=== PATIENT | female | born 1985 | race Caucasian/White ===

== ENCOUNTER 2024-04-19 08:54 | Outpatient (CLI) | payer BC, SELFPAY ==
[2024-04-21 13:54] LABS: HPV Source Cervix; HPV, High Risk by TMA Not Detected
== END 2024-04-19 08:55 | disposition home or self-care (01) ==
PROVIDERS: PCP Family Medicine; Visit Provider Family Medicine
DX: Z12.4 Encounter for screening for malignant neoplasm of cervix (principal); Z11.51 Encounter for screening for human papillomavirus (HPV)
CPT/HCPCS: 87624; 87625; 88141; 88142

== ENCOUNTER 2024-07-16 14:18 | Emergency (ER) | payer BC, SELFPAY ==
--- OUTSIDE RECORDS SUMMARY | 2024-07-16 14:21 | XMS_ITS | Clinical Summary ---
Author Organization [facility] Address [address] [place] [id number] Care Team Providers Care Temperer Name Role Phone Gabriela Macedo APRN, C.N.P., D.N.P. Primary Ca re Provider Source Comments Patient records contain information from all sites at [facility]. For routine questions regarding patient records, call [phone] during business hours, M-F 8:00 AM - 5:00 PM Central Time. Record requests for emergency care only can be directed to [phone] at any time.[facility] Allergies No known active allergies Medications * This document contains information received from the source organization and may not represent a complete record from that organization. vitamin-iron fumarate-FA 28 mg iron- 800 mcg per tablet Take 1 tablet by mouth daily. Doesn't take daily Active acetaminophen (TYLENOL) 500 mg tablet Take 500 mg by mouth every 6 (six) hours as needed for pain. Active ibuprofen (ADVIL,MOTRIN) 200 mg tablet Take 200 mg by mouth every 6 (six) hours as needed for pain. Active buPROPion XL (WELLBUTRIN XL) 300 mg 24 hr tablet Take 1 tablet (300 mg total) by mouth every morning. 90 tablet 3 4 Active esomeprazole (NexIUM) [address] capsule TAKE 1 CAPSULE(20 MG) BY MOUTH EVERY MORNING BEFORE BREAKFAST 90 capsule 3 4 Active Active Problems Problem Noted Date Diagnosed Date Gastroesophageal Reflux Disease 02/28/2022 Overview (02/28/2022): Continue Nexium 40 mg daily. Assessment & Plan (02/28/2022 3:38 PM CDT): Decreasing Nexium to 20 mg daily, if symptoms become unmanaged again, we will increase back to 40 mg daily. Depression Major One Episode Mild 05/06/2021 Overview (07/21/2023): PHQ9 Score PHQ-9 Total Score (max 27) 02/15/2021 2:21 PM 6 02/28/2022 3:20 PM 6 06/29/2023 11:23 AM 6 GAD7 Score BRIDGER-7 Total Score (max 21) 02/15/2021 2:21 PM 5 02/28/2022 3:22 PM 2 06/29/2023 11:24 AM 2 Continue Wellbutrin XL 300 mg daily. Encounters Date Type Department Care Team Description 04/22/2024 Refill Department of Family Medicine, [facility], in [place], [place] [address] [place] [address] Rama Sol P.A.-C., P.A., M.S. Med Refill from Last 3 Months Immunizations Immunization Administration Dates Next Due H1N1 All Forms 04/16/2009 H1N1 Nasal 04/16/2009 Influenza, Injectable, Mdck, Preservative Free, Quadrivalent 02/13/2020 MMR 08/09/1997,04/19/1997 SARS-COV-2 (COVID-19) - MODE RNA (12 YEARS AND OLDER) Fall Seasonal 06/30/2023 Td (Adult), adsorbed 08/09/1997 Tdap 02/15/2021 influenza vaccine quad (FLUZ ONE/FLUARIX) (6 months and older)(PF) 06/30/2023 Family History Medical History Relation Name Comments Prediabetes Father Diabetes mellitus type II Mother Relation Name Status Comments Father Mother Social History Tobacco Use Types Packs/Day Years Used Date Smoking Tobacco: Never Smokeless Tobacco: Never Tobacco Cessation:Counseling Given: Not Answered Alcohol Use Standard Drinks/Week Comments Not Currently 2 (1 standard drink = 0.6 oz pur e alcohol) rare- twice a month [facility] Utilities Answer Date Recorded In the past 12 months has [employer], oil, or water [employer] threatened to shut off services in your home? No 06/29/2023 Humiliation, Afraid, Rape, and Kick questionnair e Answer Date Recorded Within the last year, have y ou been afraid of your partner or ex-partner? No 04/25/2020 Within the last year, have y ou been humiliated or emotionally abused in other ways by your partner or ex-partner? No Within the last year, have y ou been kicked, hit, slapped, or otherwise physically hurt by your partner or ex-partner? No 04/25/2020 Within the last year, have y ou been raped or forced to have any kind of sexual activity by your partner or ex-partner? No 04/25/2020 Social Connection and Isolat ion Panel [NHANES] Answer Date Recorded In a typical week, how many times do you talk on the phone with family, friends, or neighbors? More than three times a week 04/25/2020 How often do you get togethe r with friends or relatives? More than three times a week 04/25/2020 How often do you attend chur ch or latter-day services? Never 04/25/2020 Do you belong to any clubs o r organizations such as muslim groups, unions, fraternal or athletic groups, or school groups? No 04/25/2020 How often do you attend meet ings of the clubs or organizations you belong to? Never 04/25/2020 Are you , , di vorced, , never , or living with a partner? 04/25/2020 AUDIT-C Answer Date Recorded Q1: How often do you have a drink containing alc ohol? Monthly or less 04/25/2020 Q2: How many drinks containi ng alcohol do you have on a typical day when you are drinking? 1 or 2 04/25/2020 Q3: How often do you have si x or more drinks on one occasion? Less than monthly 04/25/2020 Overall Financial Resource Strain (CARDIA) Answe r Date Recorded How hard is it for you to pa y for the very basics like food, housing, medical care, and heating? Not hard at all 04/25/2020 PHQ-2 Answer Date Recorded PHQ-2 Score 2 01/25/2024 [facility] - Occupational Stress Questionnaire Answer Date Recorded Do you feel stress - tense, restless, nervous, or anxious, or unable to sleep at night because your mind is troubled all the time - these days? Only a little 04/25/2020 Exercise Vital Sign Answer Date Recorde d On average, how many days pe r week do you engage in moderate to strenuous exercise (like a brisk walk)? 1 day 06/29/2023 On average, how many minutes do you engage in exercise at this level? 30 min 06/29/2023 Hunger Vital Sign Answer Date Recorded Within the past 12 months, y ou worried that your food would run out before you got the money to buy more. Never true 06/29/19 Within the past 12 months, t he food you bought just didn't last and you didn't have money to get more. Never true 06/29/2023 PRAPARE - Transportation Answer Date Re corded In the past 12 months, has l ack of transportation kept you from medical appointments or from getting medications? No 06/05 In the past 12 months, has l ack of transportation kept you from meetings, work, or from getting things needed for daily living? No 06/29/2023 Depression Answer Date Recor ded PHQ-9 Total Score (max 27) 5 01/24 Nutrition Answer Date Recorded On average, how many serving s of fruits and vegetables do you eat per day (serving size is equal to 1 cup or approximately the size of a tennis ball)? 0-2 06/29/2023 Dental Answer Date Recorded Dental: Regular Dentist Yes 06/29/19 Employment Answer Date Recorded Employment status Employed and actively working without restrictions 06/29/2023 Housing Stability Answer Date Recorded What is your living situation today? [facility] to [facility] 06/29/2023 Education Answer Date Recorded What is the highest level of school you have completed or the highest degree you have received? Associate degree: occupational, technical, or vocational program 04/25/2020 Comments Unknown Sex and Gender Information Value Date Recorded Sex Assigned at Female 06/29/2023 11:24 AM MAIL ORDER CLERK Legal Sex Female 5:10 AM MAIL ORDER CLERK Gender Identity Female 04/25/2020 11:16 PM MAIL ORDER CLERK Sexual Orientation Straight 06/29/2023 11 :24 AM MAIL ORDER CLERK Last Filed Vital Signs Vital Sign Reading Time Taken Comments Blood Pressure 117/83 12/07/2023 10:30 AM CDT Pulse 73 12/07/2023 10:45 AM CDT Temperature 36.4 C (97.5 F) 12/07/2023 9:15 AM CDT Respiratory Rate 21 12/07/2023 10:45 AM CDT Oxygen Saturation 100% 12/07/2023 10:45 AM CDT Inhaled Oxygen Concentration - - Weight 67.8 kg (149 lb 7.6 oz) 12/07/2023 9:12 A M CDT Height 158 cm (5' 2.21) 08/10/2023 1:04 PM CDT Body Mass Index 27.16 08/10/2023 1:04 PM CDT Plan of Treatment Health Maintenance Due Date Last Done Comments HIV Screening 1985 Hepatitis C Screening 1985 Hepatitis B Vaccines (1 of 3 - 19+ 3-dose series) 2004 Cervical/Vaginal Cancer Screening 11/03/2023 11/02/2018, 11/02/2018 COVID-19 Vaccine ( season) 2024 06/30/2023, 02/02/2021, 12/13/2020 Influenza Vaccine (#1) 2024 , 02/13/2020 Depression Monitoring (PHQ-9 for quality tracking) 05/04/2024 Depression Monitoring (PHQ-9) 05/26/2024 01/25/2024 Lipid (Cholesterol) Screening 06/30/2028 06/30/2023, 11/19/2018, 11/02/2015 DTaP,Tdap,and Td Vaccines (3 - Td or Tdap) 02/15/2031 02/15/2021, 08/09/1997 Hepatitis B Screening Discontinued 06/30/2023 HPV Vaccines Aged Out No longer eligi ble based on patient's age to complete this topic IPV Vaccines Aged Out No longer eligi ble based on patient's age to complete this topic Pneumococcal vaccine (0-49 years) Aged Out No longer eligible b ased on patient's age to complete this topic Procedures Procedure Name Priority Date/Time Associated Diagnosis Comments LIPID PANEL, S Routine 06/30/2023 11:04 AM MAIL ORDER CLERK General Medical Examination Adult Snoring Depression Major One Episode Mild (HCC) HEPATITIS B SURFACE ANTIGEN Routine 06/30/2023 11:04 AM MAIL ORDER CLERK General Medical Examination Adult Snoring Need Vaccine Immunization Screening Cancer Colon Screening Examination Diabetes Mellitus Depression Major One Episode Mild (HCC) Encounter For Antibody Response Examination THINPREP W/HPV CO-TEST SCREEN Routine 11/02/2018 8:42 AM CDT Pap Smear Examination from Last 3 Months or Most Recently Relevant to Health Maintenance Results * (ABNORMAL) Lipid Panel (06/30/2023 11:04 AM MAIL ORDER CLERK) Triglycerides 264(H) mg/dL 06/30/2023 11:55 AM MAIL ORDER CLERK AUST Comment: ----REFERENCE VALUE---- Normal: <150 mg/dL Borderline High: 150-199 mg/dL High: 200-499 mg/dL Very High: > or =500 mg/dL Cholesterol, Total 201(H) mg/dL 2023 11:55 AM MAIL ORDER CLERK AUST Comment: ----REFERENCE VALUE---- Desirable: < 200 mg/dL Borderline High: 200 - 239 mg/dL High: > or = 240 mg/dL Cholesterol, LDL, Calculated 115 mg/dL 06/30/2023 11:55 AM MAIL ORDER CLERK AUST Comment: ----REFERENCE VALUE---- Desirable: <100 mg/dL Above Desirable: 100-129 mg/dL Borderline High: 130-159 mg/dL High: 160-189 mg/dL Very High: >=190 mg/dL ----ADDITIONAL INFORMATION---- LDL cholesterol calculated using the Hare/NIH equation. Cholesterol, HDL 40(L) >=50 mg/dL 06/30/2023 11:55 AM MAIL ORDER CLERK AUST Cholesterol, Non-HDL, Calculated 161(H) mg/dL 06/30/2023 11:55 AM MAIL ORDER CLERK AUST Comment: ----REFERENCE VALUE---- Desirable: <130 mg/dL Above Desirable: 130-159 mg/dL Borderline High: 160-189 mg/dL High: 190-219 mg/dL Very High: > or =220 mg/dL Fasting (8 HR or more) Unknown 06/30/2023 11:09 AM MAIL ORDER CLERK AUST Blood (Blood, Venous) 06/30/2023 11:04 AM MAIL ORDER CLERK 06/30/2023 11:09 AM MAIL ORDER CLERK Shakir Chu M.D., M.S. LAB BLOOD ADD-ON Final Result Performing Organization Address [facility]/ZIP Co de Phone Number [facility] [address] [place] [address], [facility] [place] [address] * Hepatitis B Surface Antigen (06/30/2023 11:04 AM MAIL ORDER CLERK) HBs Antigen, S Nonreactive Nonreactive 06/30/2023 12:30 PM MAIL ORDER CLERK AUST Blood (Blood, Venous) 06/30/2023 11:04 AM MAIL ORDER CLERK 06/30/2023 11:09 AM MAIL ORDER CLERK Shakir Chu M.D., M.S. LAB MICROBIOLOGY - BLOO D ORDERABLES Final Result Performing Organization Address [facility] Co de Phone Number [facility] [address] [place] [address], [facility] [place] [address] * ThinPrep w/HPV Co-Test Screen (11/02/2018 8:42 AM CDT) 11/05/2018 11:59 AM CDT Report electronically signed by ILA Pryor(ASCP) I verify that I have examined all relevant slides/materials for the specimen(s) and rendered or confirmed the diagnosis. 11/05/2018 11:59 AM CDT Gross Description Received specimen in a ThinPrep vial. 11/05/2018 11:59 AM CDT Pap Test Source Cervical/Endocervi zunilda 11/05/2018 11:59 AM CDT Interpretation Cervical/Endocervi zunilda (ThinPrep): Satisfactory for Evaluation Endocervical/trans formation zone components absent Negative for Intraepithelial Lesion or Malignancy High Risk HPV Testing results are NEGATIVE. HPV by [employer] Inspector-Medi ated Amplification (TMA) for E6/E7 viral messenger RNA (mRNA) is an in-vitro diagnostic test for the detection of 14 high-risk Human Papilloma (HPV) types (16, 18, 31, 33, 35, 39, 45, 51, 52, 56, 58, 59, 66, and 68) in cervical specimens. Additional testing performed at [facility], [place], operated by [facility], [address] [place] [id number]. 11/05/2018 11:59 AM CDT Varies (Cervix/Endocerv ix) 11/02/2018 8:42 AM CDT 11/02/2018 2:15 PM CDT us Ivania Fontaine APRN LAB PAP PATHDX ORDERABLES F inal Result [facility] [address] [place] [address], [facility] from Last 3 Months or Most Recently Relevant to Health Maintenance Insurance [address] [place] [address] [facility] Care Teams Temperer Relationship Specialty Start Date End Date Gabriela Macedo APRN, C.N.P., D.N.P. [address] [place] [phone] PCP - General Family Medicine 04/22/21
[2024-07-16 14:22] VITALS: BP 145/88; PULSE 74; RESP 18; TEMP 37.3; O2SAT 100; BMI 24.8
--- NOTE | 2024-07-16 14:35 | ED.GENADULT ---
HPI - General Adult General Chief complaint: Eye Problems Stated complaint: Blood in Right eye Time Seen by Provider: 07/16/24 14:27 History of Present Illness HPI narrative: Patient presents to the emergency department complaining of blood in her eye. Patient states she was in the car and felt like she may have something in her eye she and rubbed the bottom eye lid near where the sclera is red. Patient states she did not injure her eye in any other way. 38-year-old woman presenting to the emergency department with concern of an injury to her right eye. Is not affected. Was in the car and thought maybe she had something in her eye. Rubbed her eye and was noted by her partner that she had significant blood there. Arrives for evaluation. She does not take anticoagulant. Is not having much in the way of pain. Little uncomfortable in the upper outer eye; maybe a sense of fullness as I understand it. Otherwise later notes that her ear was also bothering her recently. Is not struggling with congestion at the moment. Related Data Home Medications ?Medication ?Instructions ?Recorded ?Confirmed bupropion HCl 300 mg 24 hr tablet, 300 mg PO DAILY 04/19/24 07/16/24 extended release Previous Rx's ?Medication ?Instructions ?Recorded esomeprazole magnesium 20 mg 20 mg PO DAILY #90 caps 04/19/24 capsule,delayed release Allergies Allergy/AdvReac Type Severity Reaction Status Date / Time No Known Drug Allergies Allergy Verified 07/16/24 14:31 Review of Systems Status of ROS: Reports: 6 or more systems reviewed and unremarkable except as noted in History and below [facility] Social History (Updated 04/19/24 @ 09:49 by Ritika Gonzales~[facility], [facility]) What is your current living situation?: I presently have a place to live Problems where you live: no known problems In the past 12 months, utilities in danger of being shut off: no In past 12 months, lack of transportation kept you from medical appts, meetings, work, or getting things needed for daily living: no In the past 12 mos, have been you worried that your food would run out before you had money to buy more?: never true In the past 12 mos, the food you bought just didn't last and you didn't have money to buy more?: never true How often does anyone, including family, friends and others, physically hurt you: never How often does anyone, including family, friends and others, insult or talk down to you: never How often does anyone, including family, friends and others, threaten you with harm: never How often does anyone, including family, friends and others, scream or curse at you: never service: No Exam Narrative: Exam Narrative: Has long eyelash extensions in place. Carefully groomed with makeup. No trauma to her face. Right-sided subconjunctival hemorrhage medial and inferior to the cornea. Extraocular movements are full. There is no hyphema. Pupils are equal and briskly reactive. Light retraction of the eyelids does not reveal any foreign body. Retracted left TM. Right TM normal. Both ear canals are quite clean with evidence of Q-tip use. Const: Vital Signs, click to edit/add: Vital Signs - 24 hr 07/16/24 14:22 Temperature 99.2 F Pulse Rate [Right Pulse Oximeter] 74 Respiratory Rate 18 Blood Pressure [Ri ght Upper Arm] 145/88 H Pulse Oximetry 100 Oxygen Delivery Me thod Room Air Documenting provider has reviewed patient's vital signs: yes Course Vital Signs Vital signs: Initial Vital Signs Temperature 99.2 F 07/16/24 14:22 Temperature Source Temporal Artery Scan 07/16/24 14:22 Pulse Rate 74 07/16/24 14:22 Pulse Rhythm Regular 07/16/24 14:22 Pulse Strength 3+ Normal 07/16/24 14:22 Respiratory Rate 18 07/16/24 14:22 Blood Pressure 145/88 H 07/16/24 14:22 Blood Pressure Mean 107 H 07/16/24 14:22 Blood Pressure Position Sitting 07/16/24 14:22 Pulse Oximetry 100 07/16/24 14:22 Oxygen Delivery Method Room Air 07/16/24 14:22 Vital Signs Temperature 99.2 F 07/16/24 14:22 Pulse Rate 74 07/16/24 14:22 Respiratory Rate 18 07/16/24 14:22 Blood Pressure 145/88 H 07/16/24 14:22 Pulse Oximetry 100 07/16/24 14:22 Oxygen Delivery Method Room Air 07/16/24 14:22 Temperature 99.2 F 07/16/24 14:22 Pulse Rate 74 07/16/24 14:22 Respiratory Rate 18 07/16/24 14:22 Blood Pressure 145/88 H 07/16/24 14:22 Pulse Oximetry 100 07/16/24 14:22 Oxygen Delivery Method Room Air 07/16/24 14:22 Medical Decision Making MDM Narrative Medical decision making narrative: Maybe a little little larger than usual subconjunctival hemorrhage but otherwise unconcerning. Left ear symptoms may have been due to some fluid shifts. Currently looks to be a little bit of some negative pressure affecting the left TM. Would only caution regarding use of Q-tips. See patient discharge plan for further discussion Might try some lubricant ointment or drops like eye ointment, refresh p.m. or Lacri-Lube as needed. This should resolve on its own. Be seen for marked increase in spread or increasing pain with eye movement. Medical Records Medical records reviewed: Yes I reviewed the patient's medical records Discharge Plan Discharge Clinical Impression: Subconjunctival hemorrhage Patient Disposition: Home, Self-Care Condition: Stable Additional Instructions: Might try some lubricant ointment or drops like eye ointment, refresh p.m. or Lacri-Lube as needed. This should resolve on its own. Be seen for marked increase in spread or increasing pain with eye movement. Prescriptions: No Action bupropion HCl 300 mg tablet extended release 24 hr 300 mg PO DAILY esomeprazole magnesium 20 mg capsule,delayed release(DR/EC) 20 mg PO DAILY Qty: 90 3RF Follow Up/Referrals: Jake Loja MD [Primary Care Provider] - Stand Alone Forms: [employer] Info Instructions
--- OUTSIDE RECORDS SUMMARY | 2024-07-16 15:03 | XMS_ITS | Clinical Summary ---
Author Organization [facility] Address [address] [place] [address] Care Team Providers Care Supervisor Housecleaner Name Role Phone Gabriela Macedo APRN, C.N.P., D.N.P. Primary Ca re Provider Source Comments Patient records contain information from all sites at [facility]. For routine questions regarding patient records, call [phone] during business hours, M-F 8:00 AM - 5:00 PM Central Time. Record requests for emergency care only can be directed to [phone] at any time.[facility] Allergies No known active allergies Medications * [...] Description 04/22/2024 Refill Department of Family Medicine, [facility], in [place], [place] [address] [place] [address] Rama Sol P.A.-C., P.A., M.S. Med Refill [...] pur e alcohol) rare- twice a month [facility] Utilities Answer Date Recorded In the past 12 months has [place], oil, or water [employer] threatened to shut off services in your [...] often do you attend chur ch or yarsanism services? Never 04/25/2020 Do you belong to any clubs o r organizations such as temple groups, unions, fraternal or athletic groups, or [...] Answer Date Recorded PHQ-2 Score 2 01/25/2024 [facility] - Occupational [...] your living situation today? I have a [facility] place to live 06/29/2023 Education Answer Date Recorded What is the highest level of school you have completed or the highest degree you have received? Associate degree: occupational, technical, or vocational program 04/25/2020 Comments Unknown Sex and Gender Information Value Date Recorded Sex Assigned at Female 06/29/2023 11:24 AM COMMUNITY PROGRAM ASSISTANT Legal Sex Female 5:10 AM COMMUNITY PROGRAM ASSISTANT Gender Identity Female 04/25/2020 11:16 PM COMMUNITY PROGRAM ASSISTANT Sexual Orientation Straight 06/29/2023 11 :24 AM COMMUNITY PROGRAM ASSISTANT Last Filed Vital Signs Vital Sign Reading [...] LIPID PANEL, S Routine 06/30/2023 11:04 AM COMMUNITY PROGRAM ASSISTANT General Medical Examination Adult Snoring Depression Major One Episode Mild (HCC) HEPATITIS B SURFACE ANTIGEN Routine 06/30/2023 11:04 AM COMMUNITY PROGRAM ASSISTANT General Medical Examination Adult Snoring Need Vaccine Immunization Screening Cancer Colon Screening Examination Diabetes Mellitus Depression Major One Episode Mild (HCC) Encounter For Antibody Response Examination THINPREP W/HPV CO-TEST SCREEN Routine 11/02/2018 8:42 AM CDT Pap Smear Examination from Last 3 Months or Most Recently Relevant to Health Maintenance Results * (ABNORMAL) Lipid Panel (06/30/2023 11:04 AM COMMUNITY PROGRAM ASSISTANT) Triglycerides 264(H) mg/dL 06/30/2023 11:55 AM COMMUNITY PROGRAM ASSISTANT AUST Comment: ----REFERENCE VALUE---- Normal: <150 mg/dL Borderline High: 150-199 mg/dL High: 200-499 mg/dL Very High: > or =500 mg/dL Cholesterol, Total 201(H) mg/dL 2023 11:55 AM COMMUNITY PROGRAM ASSISTANT AUST Comment: ----REFERENCE VALUE---- Desirable: < 200 mg/dL Borderline High: 200 - 239 mg/dL High: > or = 240 mg/dL Cholesterol, LDL, Calculated 115 mg/dL 06/30/2023 11:55 AM COMMUNITY PROGRAM ASSISTANT AUST Comment: ----REFERENCE VALUE---- Desirable: <100 mg/dL Above Desirable: 100-129 mg/dL Borderline High: 130-159 mg/dL High: 160-189 mg/dL Very High: >=190 mg/dL ----ADDITIONAL INFORMATION---- LDL cholesterol calculated using the Hare/NIH equation. Cholesterol, HDL 40(L) >=50 mg/dL 06/30/2023 11:55 AM COMMUNITY PROGRAM ASSISTANT AUST Cholesterol, Non-HDL, Calculated 161(H) mg/dL 06/30/2023 11:55 AM COMMUNITY PROGRAM ASSISTANT AUST Comment: ----REFERENCE VALUE---- Desirable: <130 mg/dL Above Desirable: 130-159 mg/dL Borderline High: 160-189 mg/dL High: 190-219 mg/dL Very High: > or =220 mg/dL Fasting (8 HR or more) Unknown 06/30/2023 11:09 AM COMMUNITY PROGRAM ASSISTANT AUST Blood (Blood, Venous) 06/30/2023 11:04 AM COMMUNITY PROGRAM ASSISTANT 06/30/2023 11:09 AM COMMUNITY PROGRAM ASSISTANT Shakir Chu M.D., M.S. LAB BLOOD ADD-ON Final Result Performing Organization Address [facility]/ZIP Co de Phone Number [facility] [address] [place] [address], [facility] [place] [address] * Hepatitis B Surface Antigen (06/30/2023 11:04 AM COMMUNITY PROGRAM ASSISTANT) HBs Antigen, S Nonreactive Nonreactive 06/30/2023 12:30 PM COMMUNITY PROGRAM ASSISTANT AUST Blood (Blood, Venous) 06/30/2023 11:04 AM COMMUNITY PROGRAM ASSISTANT 06/30/2023 11:09 AM COMMUNITY PROGRAM ASSISTANT Shakir Chu M.D., M.S. LAB MICROBIOLOGY - BLOO D ORDERABLES Final Result Performing Organization Address [facility] Co de Phone Number [facility] [address] [place] [address], [facility] [place] [address] * ThinPrep w/HPV Co-Test Screen (11/02/2018 8:42 [...] HPV Testing results are NEGATIVE. HPV by Creative/Art Director-Medi ated Amplification (TMA) for E6/E7 viral messenger RNA (mRNA) is an in-vitro diagnostic test for the detection of 14 high-risk Human Papilloma (HPV) types (16, 18, 31, 33, 35, 39, 45, 51, 52, 56, 58, 59, 66, and 68) in cervical specimens. Additional testing performed at [facility], [address] [place] [address]. 11/05/2018 11:59 AM CDT Varies (Cervix/Endocerv ix) 11/02/2018 8:42 AM CDT 11/02/2018 2:15 PM CDT us Ivania Fontaine APRN LAB PAP PATHDX ORDERABLES F inal Result [facility] [address] [place] [address], [facility] from Last 3 Months or Most Recently Relevant to Health Maintenance Insurance [address] [place] [address] [facility] Care Teams Supervisor Housecleaner Relationship Specialty Start Date End Date Gabriela Macedo APRN, C.N.P., D.N.P. [address] [phone] PCP - General Family Medicine 04/22/21
== END 2024-07-16 15:02 | disposition home or self-care (01) ==
LOC: ED 15:01
PROVIDERS: Emergency Provider Family Medicine; PCP Family Medicine
DX: H11.31 Conjunctival hemorrhage, right eye (principal)
CPT/HCPCS: 99283

== ENCOUNTER 2024-10-09 16:47 | Emergency (ER) | payer BC, SELFPAY ==
--- OUTSIDE RECORDS SUMMARY | 2024-10-09 16:49 | XMS_ITS | Clinical Summary ---
Author Organization [facility] Address [address] [place] [address] Care Team Providers Care Heavy Line Technician Name Role Phone Gabriela Macedo APRN, C.N.P., D.N.P. Primary Ca re Provider Source Comments Patient records contain information from all sites at [facility]. For routine questions regarding patient records, call [phone] during business hours, M-F 8:00 AM - 5:00 PM Central Time. Record requests for emergency care only can be directed to [phone] at any time.[facility] Allergies No known active allergies Medications * [...] (six) hours as needed for pain. Active esomeprazole (NexIUM) [address] capsule TAKE 1 CAPSULE(20 MG) BY MOUTH EVERY MORNING BEFORE BREAKFAST 90 capsule 3 4 Active buPROPion XL (Wellbutrin XL) 300 mg 24 hr tablet TAKE 1 TABLET(300 MG) BY MOUTH EVERY MORNING 90 tablet 5 Active Active Problems Problem Noted Date Diagnosed [...] Encounters Date Type Department Care Team Description 10/04/2024 Orders Only [facility] MNT Gabriela Macedo APRN, C.N.P., D.N.P. 08/06/2024 Refill Department of Family Medicine, [facility], in [place], [place] [address] [place] [address] Gabriela Macedo APRN, C.N.P., D.N.P. Med Refill from Last 3 Months Immunizations [...] pur e alcohol) rare- twice a month [facility] Utilities Answer Date Recorded In the past 12 months has th e electric, gas, oil, or water company threatened to shut off services in your [...] often do you attend chur ch or buddhism services? Never 04/25/2020 Do you belong to any clubs o r organizations such as anabaptist groups, unions, fraternal or athletic groups, or [...] Answer Date Recorded PHQ-2 Score 2 01/25/2024 [facility] - Occupational Stress Questionnaire Answer Date Recorded [...] your living situation today? I have a [facility] place to live 06/29/2023 Education Answer Date Recorded What is the highest level of school you have completed or the highest degree you have received? Associate degree: occupational, technical, or vocational program 04/25/2020 Comments Unknown Sex and Gender Information Value Date Recorded Sex Assigned at Female 06/29/2023 11:24 AM PATHOLOGY SECRETARY Legal Sex Female 5:10 AM PATHOLOGY SECRETARY Gender Identity Female 04/25/2020 11:16 PM PATHOLOGY SECRETARY Sexual Orientation Straight 06/29/2023 11 :24 AM PATHOLOGY SECRETARY Last Filed Vital Signs Vital Sign Reading [...] LIPID PANEL, S Routine 06/30/2023 11:04 AM PATHOLOGY SECRETARY General Medical Examination Adult Snoring Depression Major One Episode Mild (HCC) HEPATITIS B SURFACE ANTIGEN Routine 06/30/2023 11:04 AM PATHOLOGY SECRETARY General Medical Examination Adult Snoring Need Vaccine Immunization Screening Cancer Colon Screening Examination Diabetes Mellitus Depression Major One Episode Mild (HCC) Encounter For Antibody Response Examination THINPREP W/HPV CO-TEST SCREEN Routine 11/02/2018 8:42 AM CDT Pap Smear Examination from Last 3 Months or Most Recently Relevant to Health Maintenance Results * (ABNORMAL) Lipid Panel (06/30/2023 11:04 AM PATHOLOGY SECRETARY) Triglycerides 264(H) mg/dL 06/30/2023 11:55 AM PATHOLOGY SECRETARY AUST Comment: ----REFERENCE VALUE---- Normal: <150 mg/dL Borderline High: 150-199 mg/dL High: 200-499 mg/dL Very High: > or =500 mg/dL Cholesterol, Total 201(H) mg/dL 2023 11:55 AM PATHOLOGY SECRETARY AUST Comment: ----REFERENCE VALUE---- Desirable: < 200 mg/dL Borderline High: 200 - 239 mg/dL High: > or = 240 mg/dL Cholesterol, LDL, Calculated 115 mg/dL 06/30/2023 11:55 AM PATHOLOGY SECRETARY AUST Comment: ----REFERENCE VALUE---- Desirable: <100 mg/dL Above Desirable: 100-129 mg/dL Borderline High: 130-159 mg/dL High: 160-189 mg/dL Very High: >=190 mg/dL ----ADDITIONAL INFORMATION---- LDL cholesterol calculated using the Hare/NIH equation. Cholesterol, HDL 40(L) >=50 mg/dL 06/30/2023 11:55 AM PATHOLOGY SECRETARY AUST Cholesterol, Non-HDL, Calculated 161(H) mg/dL 06/30/2023 11:55 AM PATHOLOGY SECRETARY AUST Comment: ----REFERENCE VALUE---- Desirable: <130 mg/dL Above Desirable: 130-159 mg/dL Borderline High: 160-189 mg/dL High: 190-219 mg/dL Very High: > or =220 mg/dL Fasting (8 HR or more) Unknown 06/30/2023 11:09 AM PATHOLOGY SECRETARY AUST Blood (Blood, Venous) 06/30/2023 11:04 AM PATHOLOGY SECRETARY 06/30/2023 11:09 AM PATHOLOGY SECRETARY Shakir Chu M.D., M.S. LAB BLOOD ADD-ON Final Result Performing Organization Address [facility] Co de Phone Number [facility] [address] [place] [address], [facility] [place] [place] [address] * Hepatitis B Surface Antigen (06/30/2023 11:04 AM PATHOLOGY SECRETARY) HBs Antigen, S Nonreactive Nonreactive 06/30/2023 12:30 PM PATHOLOGY SECRETARY AUST Blood (Blood, Venous) 06/30/2023 11:04 AM PATHOLOGY SECRETARY 06/30/2023 11:09 AM PATHOLOGY SECRETARY Shakir Chu M.D., M.S. LAB MICROBIOLOGY - BLOO D ORDERABLES Final Result Performing Organization Address [facility] de Phone Number [facility] [address] [place] [address], [facility] [place] [address] * ThinPrep w/HPV Co-Test Screen (11/02/2018 8:42 [...] HPV Testing results are NEGATIVE. HPV by Echocardiologist-Medi ated Amplification (TMA) for E6/E7 viral messenger RNA (mRNA) is an in-vitro diagnostic test for the detection of 14 high-risk Human Papilloma (HPV) types (16, 18, 31, 33, 35, 39, 45, 51, 52, 56, 58, 59, 66, and 68) in cervical specimens. Additional testing performed at [facility], [address] [place] [address]. 11/05/2018 11:59 AM CDT Varies (Cervix/Endocerv ix) 11/02/2018 8:42 AM CDT 11/02/2018 2:15 PM CDT us Ivania Fontaine APRN LAB PAP PATHDX ORDERABLES F inal Result [facility] [address] [place] [address], [facility] from Last 3 Months or Most Recently Relevant to Health Maintenance Insurance [address] [place] [address] [facility] [place] [address] Care Teams Heavy Line Technician Relationship Specialty Start Date End Date Gabriela Macedo APRN, C.N.P., D.N.P. [address] [place] [phone] PCP - General Family Medicine 04/22/21
--- OUTSIDE RECORDS SUMMARY | 2024-10-09 16:49 | XMS_ITS | Encounter Summary ---
Author Organization [facility] Address [address] [place] [address] Care Team Providers Care Commercial Loan Processor Name Role Phone Gabriela Macedo APRN, C.N.P., D.N.P. Primary Ca re Provider Reason for Referral * Outpatient (Routine) - Authorized Specialty Diagnoses / Procedures Referred By Contac t Referred To Contact Family Medicine Gabriela Macedo APRN, C.N.P., D.N.P. [address] [phone] Phone: tel: fax: [facility] Referral ID Status Reason Start Date Expiration Date V isits Requested Visits Authorized [id number] Authorized 10/04/2024 04/05/2026 1 1 Encounter Details Date Type Department Care Team (Late st Contact Info) Description 10/04/2024 Orders Only [facility] PCP [facility] MNT Gabriela Macedo APRN, C.N.P., D.N.P. [address] [place] [phone] Social History Tobacco Use Types Packs/Day Years Used Date Smoking Tobacco: Never Smokeless Tobacco: Never Alcohol Use Standard Drinks/Week Comments Not Currently 2 (1 standard drink = 0.6 oz pur e alcohol) rare- twice a month [facility] Utilities Answer Date Recorded In the past 12 months has e [employer], gas, oil, or water company threatened to [...] often do you attend chur ch or taoist services? Never 04/25/2020 Do you belong to any clubs o r organizations such as faith groups, unions, fraternal or athletic groups, or [...] Answer Date Recorded PHQ-2 Score 2 01/25/2024 [facility] of Occupat ional [facility] - Occupational Stress Questionnaire Answer Date Recorded [...] your living situation today? [facility] 06/29/2023 Education Answer Date Recorded What is the highest level of school you have completed or the highest degree you have received? Associate degree: occupational, technical, or vocational program 04/25/2020 Comments Unknown Sex and Gender Information Value Date Recorded Sex Assigned at Female 06/29/2023 11:24 AM DIE DRAWING CHECKER Legal Sex Female 5:10 AM DIE DRAWING CHECKER Gender Identity Female 04/25/2020 11:16 PM DIE DRAWING CHECKER Sexual Orientation Straight 06/29/2023 11 :24 AM DIE DRAWING CHECKER documented as of this encounter Plan of Treatment Scheduled Referrals Name Type Priority Associated Diagnoses Orde r Schedule Family Medicine office visit (clinic) Outpatient Referral Routine Expected: 10/18/2024, Expires: 03/23/2025 documented as of this encounter Visit Diagnoses Not on filedocumented in this encounter Additional Health Concerns Assessment Noted Time PHQ-9 Depression Total Score: 5 01/25/20 24 7:26 AM CDT documented as of this encounter Care Teams Commercial Loan Processor Relationship Specialty Start Date End Date Gabriela Macedo APRN, C.N.P., D.N.P. [address] [phone] PCP - General Family Medicine 04/22/21 documented as of this encounter
[2024-10-09 16:54] VITALS: BP 127/89; PULSE 93; RESP 16; TEMP 36.6; O2SAT 100; BMI 26.4
--- NOTE | 2024-10-09 17:47 | CRLHL7_ITS ---
For Patients: As a result of the Century Cures Act, medical imaging exams and procedure reports are released immediately into your electronic medical record. You may view this report before your referring provider. If you have questions, please contact your health care provider. INDICATION: Vaginal bleeding. TECHNIQUE: Ultrasound pelvis transvaginal for better assessment or to better visualize the endometrium. Real-time sonographic images with spectral and color Doppler imaging of the ovaries were obtained. COMPARISON: None. FINDINGS: Uterus: 9.1 x 4.4 x 5.0 cm. Normal echotexture of the myometrium. Probable 1.5 centimeter posterior intramural fibroid. Endometrium: Transvaginal imaging was performed to better evaluate the endometrium. Endometrial thickness measures 14 mm. No intrauterine gestation. No sign of endometrial mass or fluid. Right ovary 2.3 x 1.6 x 1.6 centimeters. Left ovary 2.9 x 1.8 x 2.4 centimeters. Tiny 1.7 centimeter left corpus luteal cyst. No ovarian or adnexal masses. Normal arterial and venous blood flow is demonstrated in both ovaries. Cul-de-sac: No significant free fluid. IMPRESSION: Mild endometrial thickening, measuring 14 millimeters. No intrauterine gestation seen. Although this could be related to early gestation or failed in the setting of vaginal bleeding, of uncertain location is not excluded. Recommend continued trending of beta HCG and short-term follow-up ultrasound as clinically indicated. Tiny 1.7 centimeter left corpus luteal cyst. This could also be followed up on subsequent imaging. Dictated by Dimitrios Thomas MD @ 10/09/2024 7:04:17 PM (Electronically Signed)
--- NOTE | 2024-10-09 18:05 | ED_ITS ---
HPI - General Adult General Chief complaint: Vaginal Bleeding Stated complaint: 6 weeks , vaginal bleeding Time Seen by Provider: 10/09/24 18:05 History of Present Illness HPI narrative: Arrives with vaginal bleeding, reports she is about 6 weeks gestation. LMP was 08/28/24 and she had a positive home test. States she has had some abdominal cramping and spotting since her LMP, but today the bleeding is heavier. Alert and oriented, ABCs intact. 39-year-old woman presenting to the emergency department with concern of bleeding and spotting. G 3p1 with 1 miscarriage. Has a 22-year-old son. LMP was 08/29/2019 test. She would estimate about 6 weeks . Is having some abdominal cramping. Bleeding has increased some. [place] last about 3 days ago. Not feeling lightheadedness. Shortness of breath. No fever. Has had frequency. Continues to experience breast tenderness. Related Data Home Medications ?Medication ?Instructions ?Recorded ?Confirmed cholecalciferol (vitamin D3) 1,250 1,250 mcg PO mcg (50,000 unit) capsule Previous Rx's ?Medication ?Instructions ?Recorded esomeprazole magnesium 20 mg 20 mg PO DAILY #90 caps 1 06/20/23 capsule,delayed release Allergies Allergy/AdvReac Type Severity Reaction Status Date / Time No Known Drug Allergies Allergy Verified 10/09/24 16:54 Review of Systems Status of ROS: Reports: 6 or more systems reviewed and unremarkable except as noted in History and below [facility] Social History (Updated 04/19/24 @ 09:49 by Ritika Gonzales~[facility], [facility]) What is your current living situation?: I presently have a place to live Problems where you live: no known problems In the past 12 months, utilities in danger of being shut off: no In past 12 months, lack of transportation kept you from medical appts, meetings, work, or getting things needed for daily living: no In the past 12 mos, have been you worried that your food would run out before you had money to buy more?: never true In the past 12 mos, the food you bought just didn't last and you didn't have money to buy more?: never true Smoking Status: Never smoker How often do you have a drink containing alcohol: never AUDIT-C Alcohol total score: 0 Non-prescribed substance use: denies use How often does anyone, including family, friends and others, physically hurt you : never How often does anyone, including family, friends and others, insult or talk down to you: never How often does anyone, including family, friends and others, threaten you with harm: never How often does anyone, including family, friends and others, scream or curse at you: never service: No Exam Narrative: Exam Narrative: Pleasant. Tearful. Skin is warm and dry. Mild discomfort to palpation of the pelvis. No lower extremity edema. Breathing easily. exam not done. Anticipating ultrasound Const: Vital Signs, click to edit/add: Vital Signs - 24 hr 10/09/24 16:54 10/09/24 19:38 Temperature 97.8 F 97.8 F Pulse Rate [Pulse Oximeter] 93 78 Respiratory Rate 16 16 Blood Pressure [Ri ght Upper Arm] 127/89 120/69 Pulse Oximetry 100 Oxygen Delivery Me thod Room Air Documenting provider has reviewed patient's vital signs: yes Course Vital Signs Vital signs: Initial Vital Signs Temperature 97.8 F 10/09/24 16:54 Temperature Source Temporal Artery Scan 10/09/24 16:54 Pulse Rate 93 10/09/24 16:54 Respiratory Rate 16 10/09/24 16:54 Blood Pressure 127/89 10/09/24 16:54 Blood Pressure Mean 101 10/09/24 16:54 Pulse Oximetry 100 10/09/24 16:54 Oxygen Delivery Method Room Air 10/09/24 16:54 Vital Signs Temperature 97.8 F 10/09/24 16:54 Pulse Rate 93 10/09/24 16:54 Respiratory Rate 16 10/09/24 16:54 Blood Pressure 127/89 10/09/24 16:54 Pulse Oximetry 100 10/09/24 16:54 Oxygen Delivery Method Room Air 10/09/24 16:54 Temperature 97.8 F 10/09/24 19:38 Pulse Rate 78 10/09/24 19:38 Respiratory Rate 16 10/09/24 19:38 Blood Pressure 120/69 10/09/24 19:38 Pulse Oximetry 100 10/09/24 16:54 Oxygen Delivery Method Room Air 10/09/24 16:54 Medical Decision Making MDM Narrative Medical decision making narrative: Could be subchorionic hemorrhage, bleeding related to intercourse, miscarriage, ectopic . Has been ordered for ultrasound. Will check labs including blood type and cbc and quantitative hCG I discussed findings of ultrasound with roving inspector. Noting endometrial thickening but no intrauterine gestation. HCG returns at 301. Think this is somewhat low for suspected date. I would suspect miscarriage here. Would consider rechecking this in a few days. Blood type will not require RhoGAM equivalent Radiology over-read below INDICATION: Vaginal bleeding. TECHNIQUE: Ultrasound pelvis transvaginal for better assessment or to better visualize the endometrium. Real-time sonographic images with spectral and color Doppler imaging of the ovaries were obtained. COMPARISON: None. FINDINGS: Uterus: 9.1 x 4.4 x 5.0 cm. Normal echotexture of the myometrium. Probable 1.5 centimeter posterior intramural fibroid. Endometrium: Transvaginal imaging was performed to better evaluate the endometrium. Endometrial thickness measures 14 mm. No intrauterine gestation. No sign of endometrial mass or fluid. Right ovary 2.3 x 1.6 x 1.6 centimeters. Left ovary 2.9 x 1.8 x 2.4 centimeters. Tiny 1.7 centimeter left corpus luteal cyst. No ovarian or adnexal masses. Normal arterial and venous blood flow is demonstrated in both ovaries. Cul-de-sac: No significant free fluid. IMPRESSION: Mild endometrial thickening, measuring 14 millimeters. No intrauterine gestation seen. Although this could be related to early gestation or failed in the setting of vaginal bleeding, of uncertain location is not excluded. Recommend continued trending of beta HCG and short-term follow-up ultrasound as clinically indicated. Tiny 1.7 centimeter left corpus luteal cyst. This could also be followed up on subsequent imaging. Dictated by Dimitrios Thomas MD @ 10/09/2024 7:04:17 PM Discussed findings with Catina and partner See patient discharge plan for further discussion I suspect that a miscarriage has occurred here. I'm sorry. Your hCG quantitative based on your LMP I think should be quite a bit higher. You can certainly follow up in clinic in a few days to recheck, double check. Please return for increasing bleeding such that you are soaking through 1 overnight pad an hour for 2 consecutive hours, significant increase in persistent pain or lightheadedness or shortness of breath. Medical Records Medical records reviewed: Yes I reviewed the patient's medical records Lab Data Lab results reviewed: Yes I reviewed the patient's lab results Labs: Lab Results 10/09/24 Range/Units 18:25 WBC 6.82 (4.50-11.00) K/uL RBC 4.05 (4.00-5.20) m/uL Hgb 12.7 (12.0-16.0) gm/dL Hct 37.5 (33.0-51.0) % MCV 93 (80-100) fL MCH 31 (26-34) pg MCHC 34 (32-36) gm/dL RDW Coeff of Linda 12.4 (11.5-15.5) % Plt Count 269 (140-440) K/uL Neut % (Auto) 66.5 (42.0-72.0) % Lymph % (Auto) 26.7 (20-44) % [place] % (Auto) 5.4 (0.0-11.0) % Eos % (Auto) 1.2 (0.0-7.0) % Baso % (Auto) 0.1 (0.0-3.0) % Neut # (Auto) 4.53 (1.7-7.0) K/uL Lymph # (Auto) 1.82 (0.90-2.90) K/uL Kern # (Auto) 0.40 (0.00-0.90) K/UL Eos # (Auto) 0.08 (0.00-0.50) K/uL Baso # (Auto) 0.01 (0.00-0.30) K/uL Abs Immat Gran (auto) 0.01 (0.00-0.30) K/uL Imm/Tot Granulo (auto) 0.1 % Sodium 139 (135-149) mmol/L Potassium 3.8 (3.6-5.1) mmol/L Chloride 106 (96-114) mmol/L Carbon Dioxide 25 (20-32) mmol/L Anion Gap 8 (7-15) mEq/L BUN 14 (5-24) mg/dL Creatinine 0.7 (0.5-1.5) mg/dL Estimated Creat Clear 89.26 Estimated GFR 113 ml/min Glucose 94 (60-115) mg/dL Calcium 9.1 (8.4-10.6) mg/dL HCG, Quant 301.71 mIU/mL Blood Type O Positive Discharge Plan Discharge Clinical Impression: Miscarriage, Vaginal bleeding Patient Disposition: Home w/ Parent or Adult Condition: Stable Additional Instructions: I suspect that a miscarriage has occurred here. I'm sorry. Your hCG quantitative based on your LMP I think should be quite a bit higher. You can certainly follow up in clinic in a few days to recheck, double check. Please return for increasing bleeding such that you are soaking through 1 overnight pad an hour for 2 consecutive hours, significant increase in persistent pain or lightheadedness or shortness of breath. Prescriptions: No Action esomeprazole magnesium 20 mg capsule,delayed release(DR/EC) 20 mg PO DAILY Qty: 90 3RF cholecalciferol (vitamin D3) 1,250 mcg (50,000 unit) capsule 1,250 mcg PO Follow Up/Referrals: Jake Loja MD [Primary Care Provider, Family Practice] Stand Alone Forms: [employer] Info Instructions
[2024-10-09 18:31] LABS: Basophils Absolute Auto 0.01 K/uL (0.00-0.30); Basophils Percent Auto 0.1 % (0.0-3.0); Eosinophils Absolute Auto 0.08 K/uL (0.00-0.50); Eosinophils Percent Auto 1.2 % (0.0-7.0); Hematocrit 37.5 % (33.0-51.0); Hemoglobin* 12.7 gm/dL (12.0-16.0); Immature Granulocytes Abs Auto 0.01 K/uL (0.00-0.30); Immature Granulocytes Pct Auto 0.1 %; Lymphocytes Absolute Auto 1.82 K/uL (0.90-2.90); Lymphocytes Percent Auto 26.7 % (20-44); Mean Corpuscular HGB Conc 34 gm/dL (32-36); Mean Corpuscular Hemoglobin 31 pg (26-34); Mean Corpuscular Volume 93 fL (80-100); Monocytes Percent Auto 5.4 % (0.0-11.0); Neutrophils Absolute Auto 4.53 K/uL (1.7-7.0); Neutrophils Percent Auto 66.5 % (42.0-72.0); Platelet Count* 269 K/uL (140-440); RDW Coefficient of Variation % 12.4 % (11.5-15.5); Red Blood Count 4.05 m/uL (4.00-5.20); White Blood Count* 6.82 K/uL (4.50-11.00)
[2024-10-09 18:34] LABS: Slide Review Reflex No
[2024-10-09 18:52] LABS: Chloride* 106 mmol/L (96-114); Potassium* 3.8 mmol/L (3.6-5.1); Sodium* 139 mmol/L (135-149)
[2024-10-09 18:55] LABS: Anion Gap 8 mEq/L (7-15); Blood Urea Nitrogen* 14 mg/dL (5-24); Calcium* 9.1 mg/dL (8.4-10.6); Carbon Dioxide* 25 mmol/L (20-32); Creatinine* 0.7 mg/dL (0.5-1.5); Est. Creatinine Clearance* 89.26; Estimated Glomerular Filt Rate 113 ml/min; Glucose* 94 mg/dL (60-115)
[2024-10-09 19:12] LABS: HCG Quantitative* 301.71 mIU/mL
[2024-10-09 19:38] VITALS: BP 120/69; PULSE 78; RESP 16; TEMP 36.6
== END 2024-10-09 19:39 | disposition home or self-care (01) ==
PROVIDERS: Emergency Medicine; Emergency Provider Family Medicine; PCP Family Medicine
DX: O03.9 Complete or unspecified spontaneous abortion without complication (principal)
CPT/HCPCS: 36415; 76817; 80048; 84702; 85025; 86850; 86900; 86901; 99284